=== PATIENT | male | born 2000 | race Caucasian/White ===

== ENCOUNTER 2025-03-26 23:38 | Inpatient (IN) | payer BC ==
[~2025-03-26] VITALS: Ht 172.7 cm; Wt 65.8 kg
[2025-03-27] MEDS ORDERED: MORPHINE SULFATE INJ 2 MG/ML DISP.SYRIN ONE ×2 (03:41→07:08)
[2025-03-27] MEDS ORDERED: ONDANSETRON 4 MG TAB.RAPDIS ONE (03:41)
[2025-03-27] MEDS: ONDANSETRON 4 MG TAB.RAPDIS PO ONE (03:49)
[2025-03-27] MEDS: MORPHINE SULFATE INJ 2 MG/ML DISP.SYRIN IM ONE (03:49)
[2025-03-27 06:50] LABS: CALCIUM, SERUM 8.7 mg/dL (8.5-10.1); CREATININE 0.7 mg/dL (0.6-1.3); SODIUM SERUM 143.0 mmol/L (136-145); UREA NITROGEN, BLOOD 6.0 mg/dL (7-18)
[2025-03-27 06:52] LABS: PLATELET COUNT (AUTO) 199 K/uL (150-450); RED BLOOD CELL COUNT(AUTO) 4.63 MIL/uL (4.5-6.0); RED CELL DISTRIBUTION WIDTH 13.2 % (11.5-15.0); WHITE BLOOD COUNT (AUTO) 9.6 K/uL (4.3-11.0)
[2025-03-27 06:55] LABS: ASPARTATE AMINOTRANSFERASE 20.0 U/L (15-37); TOTAL PROTEIN, SERUM 6.9 g/dL (6.4-8.2)
[2025-03-27] MEDS ORDERED: MAGNESIUM HYDROXIDE 30 ML UDC PO PRN (07:00)
[2025-03-27] MEDS ORDERED: MAG HYDROX/AL HYDROX/SIMETH 30 ML UDC PO PRN (07:00)
[2025-03-27] MEDS ORDERED: ONDANSETRON HCL/PF 4 MG/2 ML VIAL IVP PRN (07:00)
[2025-03-27] MEDS ORDERED: IOHEXOL-300 100 ML VIAL IV ONE (07:01)
[2025-03-27] MEDS ORDERED: IV NS 0.9% 250 ML IV ONE (07:02)
[2025-03-27] MEDS ORDERED: CT SWABBABLE VALVE TRANS SET 1 EA INFUS.SET MC ONE (07:02)
[2025-03-27] MEDS ORDERED: ONDANSETRON HCL/PF 4 MG/2 ML VIAL ONE (07:08)
[2025-03-27] MEDS: ONDANSETRON HCL/PF - ER 4 MG/2 ML VIAL IV ONE (07:20)
[2025-03-27] MEDS: MORPHINE SULFATE INJ 2 MG/ML DISP.SYRIN IV ONE (07:20)
[2025-03-27 08:00] VITALS: BP 126/82; TEMP 98.1; O2SAT 100
[2025-03-27] MEDS: IV NS 0.9% 1,000 ML IV PRN (10:29)
[2025-03-27] MEDS: PANTOPRAZOLE 40 MG VIAL IV SCH (10:32)
[2025-03-27] MEDS ORDERED: GABA600T12 PO (11:15)
[2025-03-27] MEDS ORDERED: BUPR1FIL SL (11:16)
[2025-03-27 16:00] VITALS: BP 112/66; TEMP 98.1; O2SAT 99
[2025-03-27 19:56] VITALS: BP 120/66; TEMP 98.1; O2SAT 99
[2025-03-27 20:00] VITALS: BP 115/72; TEMP 97.9; O2SAT 100
[2025-03-27] MEDS: ACETAMINOPHEN 325 MG TABLET PO PRN (22:10)
[2025-03-28] VITALS: BP 100/54; TEMP 98.5; O2SAT 98
[2025-03-28 04:00] VITALS: BP 108/65; TEMP 98.2; O2SAT 99
[2025-03-28 07:06] LABS: PLATELET COUNT (AUTO) 177 K/uL (150-450); RED BLOOD CELL COUNT(AUTO) 4.55 MIL/uL (4.5-6.0); RED CELL DISTRIBUTION WIDTH 13.1 % (11.5-15.0); WHITE BLOOD COUNT (AUTO) 4.7 K/uL (4.3-11.0)
[2025-03-28 07:12] LABS: CALCIUM, SERUM 8.8 mg/dL (8.5-10.1); CREATININE 0.7 mg/dL (0.6-1.3); PHOSPHORUS 3.9 mg/dL (2.5-4.9); SODIUM SERUM 142.0 mmol/L (136-145); UREA NITROGEN, BLOOD 4.0 mg/dL (7-18)
[2025-03-28 07:30] VITALS: BP 106/70; TEMP 98.2; O2SAT 99
[2025-03-29] MEDS ORDERED: PANTOPRAZOLE 40 MG TABLET.DR PO SCH (09:00)
== END 2025-03-28 12:35 | disposition home or self-care (01) | DRG 206 ==
LOC: ER 23:43 → TELE 03-27 07:39
PROVIDERS: ADMIT Internal Medicine; ATTEND Internal Medicine
DX: S27.329A Contusion of lung, unspecified, initial encounter (principal); S10.93XA Contusion of unspecified part of neck, initial encounter; Y04.2XXA Assault by strike against or bumped into by another person, initial encounter; Y92.099 Unspecified place in other non-institutional residence as the place of occurrence of the external cause; R13.10 Dysphagia, unspecified; F15.10 Other stimulant abuse, uncomplicated; F41.9 Anxiety disorder, unspecified; F32.A Depression, unspecified
CPT/HCPCS: 36415; 70490-TC; 71260-TC; 80048-TC; 80053-TC; 83735-TC; 84100-TC; 85025-TC; 87081-TC; A4223; G0378; J2270; J2405; J2470; J7030; J7050; Q0162; Q9967